=== PATIENT | male | born 1980 | race Caucasian/White ===

== ENCOUNTER 2022-02-22 15:05 | Emergency (ER) | payer MEDICAID ==
[~2022-02-22] VITALS: Ht 172.7 cm; Wt 90.7 kg
[2022-02-22 15:10] VITALS: BP 186/125
--- NOTE | 2022-02-22 15:16 | NUR ---
PT AMBULATED TO BED 05.
--- NOTE | 2022-02-22 15:24 | NUR ---
Dr. Hamm evaluating patient at bedside.
[2022-02-22] MEDS ORDERED: ALBUTEROL SULFATE/IPRATROPIU 3 ML SOL IH ONE (15:35)
[2022-02-22] MEDS ORDERED: DEXAMETHASONE 4 MG TAB PO ONE (15:35)
--- NOTE | 2022-02-22 15:43 | NUR ---
Lab at bedside.
--- NOTE | 2022-02-22 15:49 | NUR ---
RT at bedside.
[2022-02-22 15:50] LABS: BASOPHILS # (AUTO) 0.1 K/uL (0.00-0.22); EOSINOPHILS # (AUTO) 0.8 K/uL (0-0.4); EOSINOPHILS % (AUTO) 12.8 % (0.0-4.0); HEMATOCRIT 43.9 % (36-52); HEMOGLOBIN 14.5 g/dL (12.0-18.0); LYMPHOCYTES # (AUTO) 1.8 K/uL (2.0-11.5); LYMPHOCYTES % (AUTO) 27.6 % (20.5-51.1); MEAN CORPUSCULAR HEMOGLOBIN 27 pg (27-31); MEAN CORPUSCULAR HGB CONC 33 g/dL (33-37); MEAN CORPUSCULAR VOLUME 80.2 fL (80-94); MONOCYTES # (AUTO) 0.5 K/uL (0.8-1.0); MONOCYTES % (AUTO) 7.4 % (1.7-9.3); NEUTROPHILS # (AUTO) 3.3 K/uL (1.8-7.7); NEUTROPHILS % (AUTO) 50.2 % (42.2-75.2); PLATELET COUNT (AUTO) 254 K/uL (140-450); RED BLOOD CELL COUNT(AUTO) 5.47 MIL/uL (4.20-6.10); RED CELL DISTRIBUTION WIDTH 14.3 % (11.6-13.7); WHITE BLOOD COUNT (AUTO) 6.6 K/uL (4.8-10.8)
--- NOTE | 2022-02-22 16:12 | NUR ---
X-Ray at bedside.
[2022-02-22 16:14] LABS: ANION GAP 13.7 (8-16); CARBON DIOXIDE 26.8 mmol/L (21-32); CREATININE 0.9 mg/dL (0.6-1.3); POTASSIUM 3.5 mmol/L (3.5-5.1); TOTAL BILIRUBIN 0.6 mg/dL (0.0-1.0)
[2022-02-22] MEDS ORDERED: ALBU0.0912 IH (16:42)
[2022-02-22 16:53] VITALS: BP 163/65
--- NOTE | 2022-02-22 16:53 | NUR ---
Patient discharged with v/s stable. Written and verbal after care instructions given. Patient alert, oriented and verbalized understanding of instructions. Ambulatory with steady gait. All questions addressed prior to discharge. ID band removed. Patient advised to follow up with PMD. Rx of PROVENTIL given. Opportunity to ask questions provided and answered.
--- NOTE | 2022-02-22 16:54 | NUR ---
The patient's care was reviewed and supervised by Glenny Diaz RN.
== END 2022-02-22 16:53 | disposition home or self-care (01) ==
LOC: MED 15:05
DX: J45.901 Unspecified asthma with (acute) exacerbation (principal); I10 Essential (primary) hypertension; E78.00 Pure hypercholesterolemia, unspecified; Z79.899 Other long term (current) drug therapy
CPT/HCPCS: 36415; 71045; 80053; 83880; 84484; 85025; 93005; 94640; 99285

== ENCOUNTER 2023-03-08 18:14 | Emergency (ER) | payer MEDICAID ==
[~2023-03-08] VITALS: Ht 167.6 cm; Wt 90.7 kg
[~2023-03-08 18:14] MED LIST: ALBU0.0912 IH
[2023-03-08 18:27] VITALS: BP 173/119; PULSE 105; RESP 22; TEMP 99.3; O2SAT 95
[2023-03-08] MEDS ORDERED: ALBUTEROL SULFATE/IPRATROPIU 3 ML SOL IH ONE (18:40)
[2023-03-08] MEDS ORDERED: KETOROLAC 30 MG/ML VIAL IVP ONE (18:40)
[2023-03-08] MEDS ORDERED: methylPREDNISolone SS 125 MG/2 ML VIAL IVP ONE (18:40)
[2023-03-08 19:08] LABS: BASOPHILS # (AUTO) 0.1 K/uL (0.00-0.22); BASOPHILS % (AUTO) 1.4 % (0.0-2.0); EOSINOPHILS # (AUTO) 0.8 K/uL (0-0.4); EOSINOPHILS % (AUTO) 8.8 % (0.0-4.0); HEMATOCRIT 43.8 % (36-52); HEMOGLOBIN 14.6 g/dL (12.0-18.0); LYMPHOCYTES % (AUTO) 23.3 % (20.5-51.1); MEAN CORPUSCULAR HEMOGLOBIN 27 pg (27-31); MEAN CORPUSCULAR HGB CONC 33 g/dL (33-37); MEAN CORPUSCULAR VOLUME 81.6 fL (80-94); MONOCYTES # (AUTO) 0.6 K/uL (0.8-1.0); MONOCYTES % (AUTO) 7.3 % (1.7-9.3); NEUTROPHILS % (AUTO) 59.2 % (42.2-75.2); PLATELET COUNT (AUTO) 315 K/uL (140-450); RED BLOOD CELL COUNT(AUTO) 5.37 MIL/uL (4.20-6.10); WHITE BLOOD COUNT (AUTO) 8.5 K/uL (4.8-10.8)
[2023-03-08 19:10] VITALS: PULSE 115; RESP 32; O2SAT 96
[2023-03-08] MEDS ORDERED: ALBUTEROL 0.083% 2.5 MG/3 ML NEBU INH ONE ×2 (19:10→20:20)
[2023-03-08] MEDS ORDERED: MAG SULF 2000 MG/WATER PREMIX 50 ML IV ONE (19:10)
[2023-03-08 19:18] VITALS: PULSE 106; RESP 24; O2SAT 96
[2023-03-08 19:33] LABS: ALBUMIN 4.1 g/dL (3.4-5.0); ANION GAP 14.3 (8-16); CALCIUM 8.9 mg/dL (8.5-10.1); CARBON DIOXIDE 27.6 mmol/L (21-32); CREATININE 1.2 mg/dL (0.6-1.3); INR 0.92 (0.8-1.2); PARTIAL THROMBOPLASTIN TIME 29.6 secs (22-35.6); PROTHROMBIN TIME 9.7 secs (10.8-13.4); TOTAL BILIRUBIN 0.3 mg/dL (0.0-1.0); TOTAL PROTEIN, SERUM 8.4 g/dL (6.4-8.2)
[2023-03-08 19:38] LABS: POTASSIUM 2.9 mmol/L (3.5-5.1)
[2023-03-08] MEDS ORDERED: POTASSIUM CHLORIDE 10 MEQ TABER PO ONE (19:50)
[2023-03-08 19:58] LABS: FLU A ANTIGEN negative (NEGATIVE); FLU B ANTIGEN negative (NEGATIVE)
[2023-03-08 20:24] VITALS: PULSE 95; RESP 18; O2SAT 94
[2023-03-08] MEDS ORDERED: ALBU0.0912 IH ×2 (21:23→22:47)
[2023-03-08] MEDS ORDERED: PRED20TA5 PO ×2 (21:23→22:47)
[2023-03-08] MEDS ORDERED: LISI5TAB24 PO ×2 (21:23→22:47)
[2023-03-08 21:40] VITALS: BP 162/105; PULSE 95; RESP 18; TEMP 99.3; O2SAT 94
== END 2023-03-08 21:40 | disposition home or self-care (01) ==
LOC: MED 18:14
DX: J45.901 Unspecified asthma with (acute) exacerbation (principal); I10 Essential (primary) hypertension; Z91.148 Patient's other noncompliance with medication regimen for other reason; Z20.822 Contact with and (suspected) exposure to COVID-19; Z79.899 Other long term (current) drug therapy
CPT/HCPCS: 36415; 71045; 80053; 83880; 84484; 85025; 85610; 85730; 87426; 87804; 93005; 94640; 96365; 96366; 96375; 99285; J1885; J2930; J3475; J7613